=== PATIENT | male | born 1965 | race Hispanic/Latino ===

== ENCOUNTER 2017-05-17 13:33 | Emergency (ER) | payer MEDICARE ==
[2017-05-17 16:29] LABS: Basophils % (Auto) 1.3 % (0.0-1.8); Eosinophils % (Auto) 2.2 % (0.0-4.3); Hematocrit 36.2 % (35.5-45.6); Hemoglobin 12.2 gm/dl (11.8-15.2); Mean Corpuscular HGB Conc 34 % (32-34); Mean Corpuscular Hemoglobin 29 pg (28-32); Mean Corpuscular Volume 87 fl (84-94); Platelet Count 207 K/mm3 (140-440); Red Blood Count 4.17 M/mm3 (3.65-5.03); White Blood Count 3.8 K/mm3 (4.5-11.0)
[2017-05-17 16:44] LABS: Anion Gap 17 mmol/L; BUN/Creatinine Ratio 14; Blood Urea Nitrogen 14 mg/dL (9-20); Calcium 8.6 mg/dL (8.4-10.2); Carbon Dioxide 27 mmol/L (22-30); Chloride 102.3 mmol/L (98-107); Glucose 101 mg/dL (75-100); Potassium 4.6 mmol/L (3.6-5.0); Sodium 142 mmol/L (137-145)
--- NOTE | 2017-05-17 19:10 | XRay Report ---
FINAL REPORT PROCEDURE: XR CHEST ROUTINE 2V TECHNIQUE: Two view PA lateral chest HISTORY: Positive PPD/rule out TB COMPARISON: No prior studies are available for comparison. FINDINGS: Mild peribronchial cuffing and slight bronchovascular sheath thickening left hilar area. Possible small lymph nodes in the left hilar area. No active or acute airspace process in the lung parenchyma.. Heart is not enlarged. IMPRESSION: No definitive chest radiographic evidence for active or acute pulmonary tuberculosis
[2017-05-18] MEDS ORDERED: TORADOL IM ONE (01:32)
[2017-05-18] MEDS ORDERED: VISTARIL IM ONE (01:33)
--- NOTE | 2017-05-18 01:34 | Emergency Department Report ---
ED General Adult HPI - General Chief complaint: Medical Clearance Stated complaint: NERVES Time Seen by Provider: 05/18/17 00:49 Source: patient Mode of arrival: Ambulatory Limitations: No Limitations - History of Present Illness Initial comments: 52-year-old male presents to ER with complaints of right years and she lost for 3 days. He is having headaches and shaking all over his body. Past history significant for drug abuse. Patient has not used speed or Heroine in the last 10 days, he has not had his usual Suboxone refilled. He gets night sweats. He recently had a TB test administered on his right forearm.. -: Gradual, days(s) (3) Severity scale (0 -10): 8 Improves with: none Worsens with: none Associated Symptoms: fever/chills, headaches, loss of appetite, malaise, weakness Treatments Prior to Arrival: none - Related Data Previous Rx's Medication Instructions Recorded Last Taken Type Ibuprofen [Motrin 800 MG tab] 800 mg PO Q8HR PRN #30 tablet 05/18/17 Unknown Rx Ondansetron [Zofran TAB] 4 mg PO Q6H PRN #20 tablet 05/18/17 Unknown Rx Allergies Allergy/AdvReac Type Severity Reaction Status Date / Time Penicillins Allergy Shortness Verified 05/17/17 13:49 of Breath ED Review of Systems ROS: Stated complaint: NERVES Other details as noted in HPI Comment: All other systems reviewed and negative Constitutional: chills, malaise, weakness Eyes: denies: eye pain, eye discharge, vision change ENT: denies: ear pain, throat pain, dental pain, hearing loss Respiratory: see HPI, cough, shortness of breath. denies: SOB with exertion Cardiovascular: denies: chest pain, palpitations, dyspnea on exertion, edema Endocrine: no symptoms reported Gastrointestinal: nausea. denies: constipation, hematemesis, melena Genitourinary: denies: urgency, dysuria, frequency, hematuria Musculoskeletal: arthralgia, myalgia. denies: joint swelling Skin: denies: lesions, change in color, change in hair/nails, pruritus Neurological: headache, weakness ED Past Medical Hx - Social History Smoking Status: Current Every Day Smoker Substance Use Type: Cocaine, Heroin, Marijuana - Medications Home Medications: Home Medications Medication Instructions Recorded Confirmed Last Taken Type Ibuprofen [Motrin 800 MG tab] 800 mg PO Q8HR PRN #30 tablet 05/18/17 Unknown Rx Ondansetron [Zofran TAB] 4 mg PO Q6H PRN #20 tablet 05/18/17 Unknown Rx ED Physical Exam - General Limitations: No Limitations General appearance: alert - Head Head exam: Present: atraumatic, normocephalic, normal inspection - Eye Eye exam: Present: normal appearance, PERRL, EOMI. Absent: scleral icterus, conjunctival injection, nystagmus - ENT ENT exam: Present: normal exam, normal orophraynx, mucous membranes moist - Neck Neck exam: Present: normal inspection, full ROM, lymphadenopathy. Absent: tenderness, thyromegaly - Respiratory Respiratory exam: Present: normal lung sounds bilaterally. Absent: respiratory distress, wheezes, rales, rhonchi, chest wall tenderness, decreased breath sounds, prolonged expiratory - Cardiovascular Cardiovascular Exam: Present: regular rate, normal rhythm, normal heart sounds. Absent: bradycardia, tachycardia, systolic murmur, diastolic murmur - GI/Abdominal GI/Abdominal exam: Present: soft, normal bowel sounds. Absent: distended, tenderness, guarding, rebound, hyperactive bowel sounds, hypoactive bowel sounds , organomegaly, mass, bruit, pulsatile mass - Rectal Rectal exam: Present: deferred - Back Exam Back exam: Present: normal inspection, full ROM. Absent: CVA tenderness (L) - Neurological Exam Neurological exam: Present: alert, oriented X3, CN II-XII intact, motor sensory deficit ED Course Vital Signs 05/17/17 05/17/17 05/18/17 13:49 23:38 02:21 Temperature 98.8 F 97.5 F L Pulse Rate 80 62 Respiratory 18 18 16 Rate Blood Pressure 118/69 118/72 O2 Sat by Pulse 97 98 Oximetry ED Medical Decision Making - Lab Data Result diagrams: 05/17/17 16:09 05/17/17 16:09 Critical Care Time: No Critical care attestation.: If time is entered above; I have spent that time in minutes in the direct care of this critically ill patient, excluding procedure time. ED Disposition Clinical Impression: Viral illness Clinical Impression: (Ruled Out): Illness Disposition: DC- TO HOME OR SELFCARE Is pt being admited?: No Does the pt Need Aspirin: No Condition: Stable Instructions: Viral Syndrome (ED) Additional Instructions: Fluids , bed rest, [id number] Tylenol or Motrin for aches and pains Prescriptions: Ibuprofen [Motrin 800 MG tab] 800 mg PO Q8HR PRN #30 tablet PRN Reason: Pain Ondansetron [Zofran TAB] 4 mg PO Q6H PRN #20 tablet PRN Reason: Nausea Referrals: CHARLES CONCEPCION MD [Other] - 3-5 Days Time of Disposition: 02:39
[2017-05-18 02:57] VITALS: BP 122/78
== END 2017-05-18 02:56 | disposition home or self-care (01) ==
LOC: ED 13:33
DX: B34.9 Viral infection, unspecified (principal); F14.10 Cocaine abuse, uncomplicated; F12.10 Cannabis abuse, uncomplicated; F11.10 Opioid abuse, uncomplicated
CPT/HCPCS: 36415; 71020; 80048; 85025; 96372; 99283; G0480; J1885; J3410; 80320

== ENCOUNTER 2017-05-25 16:25 | Emergency (ER) | payer MEDICARE ==
--- NOTE | 2017-05-25 16:34 | Emergency Department Report ---
Stated Complaint: HRADACHE/MH Time Seen by Provider: 05/25/17 16:29 - HPI History of Present Illness: PT states he got kicked out of [facility] today for using yesterday. PT has a hx of OD. PT states he has a hx of bipolar. PT states he did not think he would get kicked out for using and he is afraid he might hurt himself. - ROS Review of Systems: + headache + chronic pain - Exam Physical Exam: PT is alert gcs 15 steady gait MSE screening note: Focused history and physical exam performed. Due to findings the following was ordered: labs ED Disposition for MSE Condition: Stable
[2017-05-25 17:01] LABS: Basophils % (Auto) 0.5 % (0.0-1.8); Eosinophils % (Auto) 0.2 % (0.0-4.3); Hematocrit 39.3 % (35.5-45.6); Hemoglobin 13.2 gm/dl (11.8-15.2); Mean Corpuscular HGB Conc 34 % (32-34); Mean Corpuscular Hemoglobin 29 pg (28-32); Mean Corpuscular Volume 85 fl (84-94); Platelet Count 216 K/mm3 (140-440); Red Blood Count 4.61 M/mm3 (3.65-5.03); Red Cell Distribution Width 13.4 % (13.2-15.2); White Blood Count 5.3 K/mm3 (4.5-11.0)
[2017-05-25 17:21] LABS: Alanine Aminotransferase 10 units/L (7-56); Albumin 4.2 g/dL (3.9-5); Albumin/Globulin Ratio 1.4 %; Alkaline Phosphatase 89 units/L (35-129); Anion Gap 18 mmol/L; BUN/Creatinine Ratio 21; Blood Urea Nitrogen 15 mg/dL (9-20); Calcium 8.9 mg/dL (8.4-10.2); Carbon Dioxide 24 mmol/L (22-30); Chloride 103.3 mmol/L (98-107); Glucose 94 mg/dL (75-100); Potassium 4.1 mmol/L (3.6-5.0); Sodium 141 mmol/L (137-145); Total Protein 7.1 g/dL (6.3-8.2)
[2017-05-25 18:56] LABS: Urine Drugs of Abuse Note Disclamer
[2017-05-25 19:05] LABS: Bilirubin,Urine NEG (Negative); Blood,Urine NEG (Negative); Ketones,Urine NEG (Negative); Leukocyte Esterase,Urine NEG (Negative); Mucus,Urine FEW /HPF; Nitrite,Urine NEG (Negative); Urobilinogen,Urine < 2.0 mg/dL (<2.0); WBC,Urine < 1.0 /HPF (0.0-6.0)
--- NOTE | 2017-05-25 21:14 | Cat Scan Report ---
FINAL REPORT EXAM: CT HEAD/BRAIN WO CON HISTORY: headache, blurred vision, tremors, drug abuse TECHNIQUE: CT head without contrast PRIORS: None. FINDINGS: No acute intra-axial or extra-axial hemorrhage is identified. There is no evidence of midline shift or mass effect. The ventricles and sulci are within normal limits. Barfield-white matter differentiation is intact. No acute parenchymal abnormalities seen. Bony calvarium is grossly intact. Visualized portions of the mastoids and paranasal sinuses are unremarkable. IMPRESSION: Negative CT head
--- NOTE | 2017-05-25 22:30 | Emergency Department Report ---
ED Psych HPI - General Chief Complaint: Psych Stated Complaint: HRADACHE/MH Time Seen by Provider: 05/25/17 16:29 Source: patient Mode of arrival: Ambulatory - History of Present Illness Initial Comments: 52 years old male with history of depression and substance abuse he was just released [facility] this morning again today with suicidal ideation patient stated that he is thinking about overdosing on heroin. Patient denied any homicidal ideation and auditory or visual hallucination. MD Complaint: suicidal ideation, feels depressed Associated Psychiatric Symptoms: depression, suicidal ideation Quality: constant If Self Harm: admits thoughts of, has plan, intentional overdose - Related Data Previous Rx's Medication Instructions Recorded Last Taken Type Ibuprofen [Motrin 800 MG tab] 800 mg PO Q8HR PRN #30 tablet 05/18/17 Unknown Rx Ondansetron [Zofran TAB] 4 mg PO Q6H PRN #20 tablet 05/18/17 Unknown Rx Allergies Allergy/AdvReac Type Severity Reaction Status Date / Time Penicillins Allergy Shortness Verified 05/25/17 16:36 of Breath ED Review of Systems ROS: Stated complaint: HRADACHE/MH Other details as noted in HPI Comment: All other systems reviewed and negative Constitutional: denies: chills, fever Respiratory: denies: cough, shortness of breath, SOB with exertion Cardiovascular: denies: chest pain, palpitations Gastrointestinal: denies: abdominal pain, nausea, vomiting, diarrhea, hematemesis Genitourinary: denies: urgency Neurological: denies: headache, weakness, paresthesias ED Past Medical Hx - Past Medical History Previous Medical History?: Yes Hx Psychiatric Treatment: Yes (Bipolar, ADHD) - Surgical History Past Surgical History?: Yes Additional Surgical History: Back x5 - Social History Smoking Status: Current Every Day Smoker Substance Use Type: Cocaine, Marijuana - Medications Home Medications: Home Medications Medication Instructions Recorded Confirmed Last Taken Type Ibuprofen [Motrin 800 MG tab] 800 mg PO Q8HR PRN #30 tablet 05/18/17 05/25/17 Unknown Rx Ondansetron [Zofran TAB] 4 mg PO Q6H PRN #20 tablet 05/18/17 05/25/17 Unknown Rx ED Physical Exam - General Limitations: No Limitations General appearance: alert, in no apparent distress - Head Head exam: Present: atraumatic, normocephalic - Eye Eye exam: Present: normal appearance - ENT ENT exam: Present: normal exam - Neck Neck exam: Present: normal inspection - Respiratory Respiratory exam: Present: normal lung sounds bilaterally - Cardiovascular Cardiovascular Exam: Present: regular rate, normal rhythm, normal heart sounds - GI/Abdominal GI/Abdominal exam: Present: soft. Absent: distended, tenderness, guarding, rebound, mass, bruit, pulsatile mass - Extremities Exam Extremities exam: Present: normal inspection - Back Exam Back exam: Present: normal inspection - Neurological Exam Neurological exam: Present: alert, oriented X3, CN II-XII intact, normal gait - Psychiatric Psychiatric exam: Present: depressed, suicidal ideation. Absent: manic, homicidal ideation - Skin Skin exam: Present: warm, intact, normal color ED Course Vital Signs 05/25/17 05/25/17 16:32 21:11 Temperature 98.5 F 98.2 F Pulse Rate 87 79 Respiratory 16 18 Rate Blood Pressure 135/96 Blood Pressure 145/92 [Left] O2 Sat by Pulse 96 99 Oximetry ED Medical Decision Making - Lab Data Result diagrams: 05/25/17 16:44 05/25/17 16:44 Critical care attestation.: If time is entered above; I have spent that time in minutes in the direct care of this critically ill patient, excluding procedure time. ED Disposition Clinical Impression: Suicidal ideation Disposition: [id number] HOSP/PSY UNIT Is pt being admited?: No Condition: Stable Referrals: PRIMARY CARE, [Primary Care Provider] - 3-5 Days
[2017-05-26] MEDS ORDERED: IMODIUM PO ONE (08:53)
[2017-05-26 10:35] VITALS: BP 142/86
--- NOTE | 2017-05-26 13:37 | Consultation ---
History of Present Illness - Reason for Consult Consult date: 05/26/17 Reason for consult: Mental Health Evaluation Requesting physician: VALE GOMEZ - Chief Complaint Chief complaint: "I need to stop using drugs" - History of Present Psychiatric Illness 52 years old male with history of depression and substance abuse presenting with SI's with a plan to overdose on heroin. Today patient cooperative, but anxious during the assessment. He stated that he recently was discharged from [facility] and stepped down to the [facility]. He stated that he used recreational drugs (marijuana/cocaine) during his stay at the [facility] lodge. He stated that he have not taken his medications in a week. He was dismissed from the program because of the positive UDS. He stated that angered him and felt like suicide is his only option. He stated struggling with depression for years since his back surgery years ago. He stated that he use recreational drugs to "masked" his depression and help with his chronic back pain. Per the patient he takes Suboxone. He denies HI's and AVH's. He rate his depression 7/10, with 10 being the worse. He denies a poor appetite, but admits initiating sleep can be difficult. He denies alcohol consumption (etoh). Medications and Allergies Allergies Allergy/AdvReac Type Severity Reaction Status Date / Time Penicillins Allergy Shortness Verified 05/25/17 16:36 of Breath Home Medications Medication Instructions Recorded Confirmed Last Taken Type Ibuprofen [Motrin 800 MG tab] 800 mg PO Q8HR PRN #30 tablet 05/18/17 05/25/17 Unknown Rx Ondansetron [Zofran TAB] 4 mg PO Q6H PRN #20 tablet 05/18/17 05/25/17 Unknown Rx Past psychiatric history - Past Medical History Past Medical History: other (Back pain) Past Surgical History: Other (Back surgery) - past Psychiatric treatment and history Psych: Depression psychiatric treatment history: Patient report and hx of depression. Denies a fam psy hx. - Social History Social history: Lives alone Mental Status Exam - Vital signs Last Vital Signs Temp 98.4 F 05/26/17 08:35 Pulse 84 05/26/17 08:35 Resp 18 05/26/17 08:35 BP 142/86 05/26/17 08:35 Pulse Ox 97 05/26/17 08:35 - Exam Narrative exam: MSE: Appearance: calm, cooperative Behavior: regular eye contact Speech: regular rate and tone Mood: anxious Affect: flat Thought Process: circumstantial Thought Content: denies HI's and AVH's Motor Activity: lying in bed Cognition: A/Ox 3 Insight: variable Judgment: variable Results Result Diagrams: 05/25/17 16:44 05/25/17 16:44 Abnormal lab results 05/25/17 05/25/17 05/25/17 Range/Units 16:44 16:44 16:44 Lymph # 0.9 L (1.2-5.4) K/mm3 Seg Neutrophils % 75.9 H (40.0-70.0) % Creatinine 0.7 L (0.8-1.5) mg/dL Salicylates < 0.3 L (2.8-20.0) mg/dL All other labs normal. Assessment and Plan Assessment and plan: Impression: Per the patient hx of Depression. MDD severe type. Substance Use DO (cocaine/marijuana). Today patient cooperative, but anxious during the assessment. Patient reports SI's with a plan to overdose on heroin. DDx: R/O Bipolar, Somatic Symptom DO, Substance Induced Mood DO Recommendation/Plan: Continue 1013 with placement to [facility] today.
== END 2017-05-26 13:23 ==
LOC: ED 16:25 → EEVIPCON 16:25 → ED 05-26 13:23
DX: R45.851 Suicidal ideations (principal); F32.9 Major depressive disorder, single episode, unspecified; F12.10 Cannabis abuse, uncomplicated; F14.10 Cocaine abuse, uncomplicated; F17.200 Nicotine dependence, unspecified, uncomplicated; Z88.0 Allergy status to penicillin
CPT/HCPCS: 36415; 70450; 80053; 80307; 81001; 85025; 99285; G0480; 80320